=== PATIENT | male | born 1970 | race Caucasian/White ===

== ENCOUNTER 2024-09-17 10:50 | Emergency (ER) | payer OTHER, MEDICARE, SELFPAY ==
[2024-09-17 10:53] VITALS: BP 117/72
[2024-09-17] MEDS: NSS 1000 IV (11:39)
[2024-09-17] MEDS: TORADOL 15 MG IV (11:39)
[2024-09-17 11:41] VITALS: BMI 30.1
[2024-09-17 11:44] LABS: % Basophils 0.6 % (0-2); % Eosinophils 2.8 % (0-6); % Immature Granulocytes 0.1 % (0-0.5); % Lymphocytes 39.1 % (20.5-51.1); % Monocytes 9.7 % (1.7-9.3); % Neutrophils 47.7 % (42.2-75.2); Absolute Eosinophils 0.2 10^3/uL (0-0.7); Absolute Lymphocytes 2.6 10^3/uL (1.2-3.4); Absolute Monocytes 0.7 10^3/uL (0.1-0.6); Absolute Neutrophils 3.2 10^3/uL (1.4-6.5); Hemoglobin 16.3 g/dL (13.0-18.0); Mean Corp Hgb Conc. 36.2 g/dL (33.0-37.0); Mean Corpuscular Hgb 32.5 pg (27.0-31.0); Mean Corpuscular Volume 89.8 fL (80.0-94.0); Mean Platelet Volume 8.3 fL (7.4-10.4); Nucleated Red Blood Cells % 0 % (-); Platelet Count 210 10^3/uL (130-400); Red Blood Cell Count 5.01 10^6/uL (4.70-6.10); Red Cell Dist. Width 12.5 % (11.5-14.5); White Blood Cell Count 6.7 10^3/uL (4.8-10.8)
[2024-09-17 12:03] LABS: ALT (SGPT) 32 U/L (0-50); AST (SGOT) 30 U/L (17-59); Albumin 4.4 g/dl (3.5-5.0); Alkaline Phosphatase 89 U/L (38-126); Blood Urea Nitrogen 18 mg/dl (9-20); Calcium 10.1 mg/dl (8.4-10.2); Carbon Dioxide 25 mmol/L (22-30); Chloride 103 mmol/L (98-107); Estimated Creatinine Clearance > 125 ml/min; Glucose 102 mg/dl (70-99); Lipase 85 U/L (23-300); Potassium 4.3 mmol/L (3.5-5.1); Sodium 137 mmol/L (135-145); Total Bilirubin 1.2 mg/dl (0.2-1.3); Total Protein 7.1 g/dl (6.3-8.2); eGFR > 60.00
--- NOTE | 2024-09-17 13:29 | ED.GENMED ---
History of Present Illness
<Freddie Garnica DO - Last Filed: 09/17/24 13:33>
General
Chief Complaint: Abdominal Pain
Source: patient and family
Time Seen by Provider: 09/17/24 11:07
History of Present Illness
History of Present Illness:
54-year-old male who presents with lower abdominal pain. Mom states that he had similar pain about a month ago and it was chalked up to a viral infection. It did get better after 2 days. Today the pain started again and he was crying at home.
Mom states she was concerned because the pain returned. No vomiting. No urinary changes. No dysuria. No hematochezia. No constipation. No diarrhea. No nausea.
Past History
<Freddie Garnica DO - Last Filed: 09/17/24 13:33>
Past History
ED Past Medical History: Other (Developmentally delayed)
ED Past Surgical History: None
Phy Exam
<Freddie Garnica DO - Last Filed: 09/17/24 13:33>
Physical Exam
Physical Exam:
CONSTITUTIONAL Patient alert and oriented to person, place and time. Well-appearing. Vital signs reviewed. Developmentally delayed
HEAD atraumatic, normocephalic.
EYES eyelids normal to inspection, Extraocular muscles intact, Conjunctiva normal, Sclera normal.
NECK normal range of motion, Trachea midline, no jugular venous distention.
RESPIRATORY CHEST No respiratory distress noted, Chest expansion equal, Bilateral breath sounds clear.
CARDIOVASCULAR regular rate and rhythm, Heart sounds normal.
ABDOMEN patient points to the area below his umbilicus bilaterally where he is having pain. However there is no real focal tenderness there. Question minimal distention but normal bowel sounds.
BACK normal inspection, no obvious deformities
UPPER EXTREMITY range of motion normal, Motor strength normal, no cyanosis, no edema.
LOWER EXTREMITY range of motion normal, Motor strength normal, no cyanosis, no edema.
NEURO Speech normal, No focal motor deficits, [place] coma scale 15, Cranial Nerves intact to screening exam.
Course
<Freddie Garnica, DO - Last Filed: 09/17/24 13:33>
Orders/Labs/Results
Orders:
Orders
09/17/24 11:20
CT Abd/Pel (IV only)-[facility] only Urgent
Comment:
Reason For Exam: Lower abd pain
0.9% Sodium Chloride 1000 ml [Nss] 1,000 ml IV BOLUS
Ketorolac [Toradol] 15 mg IV NOW STA
09/17/24 11:35
Complete Blood Count/With Diff Urgent
Comprehensive Metabolic Panel Urgent
Lipase Urgent
09/17/24 14:17
Urinalysis Reflex To Culture Urgent
Date Specimen was Collected: 09/17/24
Time Specimen was Collected: 14:15
Urine Microscopic Reflex Cult Urgent
Abnormal Lab Results
09/17/24 09/17/24
11:35 14:17
MCH 32.5 H pg
(27.0-31.0)
Absolute Monos (auto) 0.7 H 10^3/uL
(0.1-0.6)
Monocytes % 9.7 H %
(1.7-9.3)
Glucose 102 H mg/dl
(70-99)
Urine Albumin (Reflex) 1+ A
(Neg - Trace)
09/17/24 11:35
09/17/24 11:35
Vital Signs
Initial and Last Documented VS:
Initial Vital Signs
Temp Pulse Resp Pulse Ox
97.4 F 66 18 97
09/17/24 10:51 09/17/24 10:51 09/17/24 10:51 09/17/24 10:51
Last Documented Vital Signs
Temp Pulse Resp BP Pulse Ox
97.4 F 63 16 135/83 97
09/17/24 10:51 09/17/24 14:19 09/17/24 14:19 09/17/24 14:19 09/17/24 14:19
<Jose Enrique Collazo MD - Last Filed: 09/17/24 14:57>
Orders/Labs/Results
Orders:
Orders
09/17/24 11:20
CT Abd/Pel (IV only)-[facility] only Urgent
Comment:
Reason For Exam: Lower abd pain
0.9% Sodium Chloride 1000 ml [Nss] 1,000 ml IV BOLUS
Ketorolac [Toradol] 15 mg IV NOW STA
09/17/24 11:35
Complete Blood Count/With Diff Urgent
Comprehensive Metabolic Panel Urgent
Lipase Urgent
09/17/24 14:17
Urinalysis Reflex To Culture Urgent
Date Specimen was Collected: 09/17/24
Time Specimen was Collected: 14:15
Urine Microscopic Reflex Cult Urgent
Abnormal Lab Results
09/17/24 09/17/24
11:35 14:17
MCH 32.5 H pg
(27.0-31.0)
Absolute Monos (auto) 0.7 H 10^3/uL
(0.1-0.6)
Monocytes % 9.7 H %
(1.7-9.3)
Glucose 102 H mg/dl
(70-99)
Urine Albumin (Reflex) 1+ A
(Neg - Trace)
09/17/24 11:35
09/17/24 11:35
Vital Signs
Initial and Last Documented VS:
Initial Vital Signs
Temp Pulse Resp Pulse Ox
97.4 F 66 18 97
09/17/24 10:51 09/17/24 10:51 09/17/24 10:51 09/17/24 10:51
Last Documented Vital Signs
Temp Pulse Resp BP Pulse Ox
97.4 F 63 16 135/83 97
09/17/24 10:51 09/17/24 14:19 09/17/24 14:19 09/17/24 14:19 09/17/24 14:19
<Freddie Garnica DO - Last Filed: 09/17/24 13:33>
MDM/Problems Addressed
Differential Diagnosis Includes:
Appendicitis, diverticulitis, colitis, bowel obstruction, constipation, urinary tract infection, kidney stone, AAA
MDM/Problems Addressed:
Abdominal pain
<Freddie Garnica DO - Last Filed: 09/17/24 13:33>
*Radiology
Radiology exam reviewed: preliminary read by ED provider (No free air noted)
*Pulse Oximetry
Patient hypoxic: no
*Critical Care Note
Total Time (30-74mins, 75-104mins- exclusive of procedures): Not Applicable
Data Reviewed
Source: patient and family
Prescriptions/Medications Considered But Not Given:
Considered narcotic pain medicine the patient appears well and feels better after to
<Freddie Garnica DO - Last Filed: 09/17/24 13:33>
Patient Management
Escalation/DeEscalation of care consider admission/obs:
CT pending. Case discussed with Dr. Collazo. Signed out pending CT. Dispo per CT. Labs grossly unremarkable. Vital signs okay
<Jose Enrique Collazo MD - Last Filed: 09/17/24 14:57>
Update Note
Update Note:
CT abdomen pelvis report reviewed and discussed with patient and parents. Patient advised to follow-up with PCP for reevaluation. Otherwise, patient is afebrile, hemodynamically stable, and nontoxic-appearing at time of discharge.
ED Attending Note
<DO Ann Betnacur Last Filed: 09/17/24 13:33>
-
Portions of this chart may have been created with voice recognition software.� Occasional wrong word or��sound alike� substitutions may have occurred due to the inherent limitations of voice recognition software.
Discharge Plan
Departure
Patient Disposition: Home (Routine Discharge)
Date of Disposition: 09/17/24
Time of Disposition: 14:56
Patient with high blood pressure during this ER visit?: Yes
Condition: Good
Discharge Problem:
Abdominal pain
Instructions: Abdominal Pain
Referrals:
UNKNOWN - PT DOES,NOT KNOW [Family Provider] -
Activity Restrictions/Additional Instructions:
As discussed, please follow-up with your primary care physician for further evaluation and treatment. Please consider return to ED with worsening symptoms, i.e. fever/worsening pain/vomiting.
Interventions
Interventions:
*Risk Screen - Suicide Last Done: 09/17/24 14:19
*General Assessment Last Done: 09/17/24 14:19
*Neglect/Abuse Screening Last Done: 09/17/24 14:19
*ED- Fall Risk Assessment Last Done: 09/17/24 14:19
SH-Qutjjy-Ghiwamclac Assessment Last Done: 09/17/24 11:48
Discharge Date and Time
Print Language: ALBANIAN
[2024-09-17 14:19] VITALS: BP 135/83
[2024-09-17 14:32] LABS: Urine Albumin 1+ (Neg - Trace); Urine Bilirubin Negative (Negative); Urine Character Clear (Clear); Urine Color Yellow; Urine Glucose Negative (Negative); Urine Ketone Negative (Negative); Urine Leukocyte Negative (Negative); Urine Nitrite Negative (Negative); Urine Occult Blood Negative (Negative); Urine Urobilinogen Negative (Neg - 1+); Urine pH 6.5 (5.0-9.0)
[2024-09-17 14:59] LABS: Urine Mucus Many
[2024-09-17 15:00] LABS: Urine Amorphous Seen; Urine Urothelial Cell 0-2 /LPF (FEW)
[2024-09-17 15:01] LABS: Urine Red Blood Cell 0-2 /HPF (0-2); Urine White Cell 0-2 /HPF (0-5)
== END 2024-09-17 15:18 | disposition home or self-care (01) ==
LOC: EMR 10:50
PROVIDERS: EMERGENCY PHYSICIAN Emergency Medicine
DX: R10.30 Lower abdominal pain, unspecified (principal); R03.0 Elevated blood-pressure reading, without diagnosis of hypertension
CPT/HCPCS: 99285; 96374; 96361; 74177; 80053; 81003; 81015; 83690; 85025; Q9967

== ENCOUNTER 2024-10-22 09:43 | Emergency (ER) | payer MEDICARE, SELFPAY ==
[2024-10-22 09:48] VITALS: BP 167/111
--- NOTE | 2024-10-22 10:33 | ED.GENMED ---
History of Present Illness
General
Chief Complaint: Musculo-Skeletal Complaint
Time Seen by Provider: 10/22/24 10:25
History of Present Illness
History of Present Illness:
Patient is a 54-year-old male with history of developmental delay presenting to the emergency department with back pain and leg pain. Patient states that he went on a long walk with his brother yesterday and now he has pain to his left lower
back/hip. The pain shoots down his leg. No numbness tingling urinary incontinence saddle anesthesia fevers or chills. No falls. No traumatic injuries. His muscles do not feel sore. He has had sciatica in the past before and this does feel
similar.
Past History
Past History
ED Past Medical History: Other (Developmentally delayed)
ED Past Surgical History: None
Phy Exam
Physical Exam
Physical Exam:
GENERAL: in no acute distress
HEENT: normocephalic, extraocular movements intact, moist oral mucosa
NECK: normal inspection
RESPIRATORY: no respiratory distress, clear to auscultation bilaterally
CARDIOVASCULAR: regular rate and rhythm
ABDOMEN/: soft, non-distended, non-tender to palpation, no rebound or guarding
EXTREMITIES: non-tender, no edema/swelling, reproducible tenderness to the left lower back/upper hip with radiation of pain down the leg
NEUROLOGIC: awake and alert, moves all extremities, equal strength in upper and lower extremities, no sensory deficits
SKIN: warm
Course
Orders/Labs/Results
Orders:
Orders
10/22/24 10:33
Ketorolac [Toradol] 15 mg IM NOW STA
Prednisone [Deltasone] 50 mg PO NOW STA
Vital Signs
Initial and Last Documented VS:
Initial Vital Signs
Temp Pulse Resp BP Pulse Ox
98.2 F 86 18 167/111 95
10/22/24 09:48 10/22/24 09:48 10/22/24 09:48 10/22/24 09:48 10/22/24 09:48
Last Documented Vital Signs
Temp Pulse Resp BP Pulse Ox
98.2 F 86 18 167/111 95
10/22/24 09:48 10/22/24 09:48 10/22/24 09:48 10/22/24 09:48 10/22/24 09:48
MDM/Problems Addressed
Differential Diagnosis Includes:
Patient is a 54-year-old man with history of developmental delay presenting to the emergency department with left lower back/leg pain after going on a long walk with his brother. Vitals are notable for being hypertensive and exam does show
reproducible tenderness. Could be MSK pain versus sciatica given the radiation. No red flags to suggest cauda equina cord compression osteomyelitis discitis or vertebral compression fracture. Will pain control with Toradol. Given the neuropathic
component we will give steroids as this does feel similar to prior sciatica pain. We did discuss the utility of an x-ray and given that there is no traumatic injuries and likely musculoskeletal normal for x-ray. Patient's mother at bedside is in
agreement with this. Strict return precautions given. Will discharge at this time.
*Critical Care Note
Total Time (30-74mins, 75-104mins- exclusive of procedures): Not Applicable
ED Attending Note
-
Portions of this chart may have been created with voice recognition software.� Occasional wrong word or��sound alike� substitutions may have occurred due to the inherent limitations of voice recognition software.
Discharge Plan
Departure
Patient Disposition: Home (Routine Discharge)
Date of Disposition: 10/22/24
Time of Disposition: 11:29
Patient with high blood pressure during this ER visit?: Yes
Discharge Problem:
Sciatica
Instructions: Exercises for sciatic pain, Sciatica - ED discharge instructions
Prescriptions:
New
prednisone 20 mg tablet
40 mg PO DAILY 5 Days Qty: 10 0RF
Referrals:
FELICIA BLACKMON [Other]
Activity Restrictions/Additional Instructions:
The exact cause of your back pain is unclear but it is likely musculoskeletal/mechanical low back pain that usually improves with conservative treatment after a few weeks.
You can take ibuprofen 400 mg (2 dfvb-icd-eoszpca tablets) every 4 hours or 600 mg (3 bnms-hdp-wpvmkzk tablets) every 6 hours as needed for pain. Take the lowest effective dose -- the 600 mg dose has an anti-inflammatory effect, but evidence
suggests that this dose may not get you better pain control over a 400 mg dose.
You can take Tylenol 1000 mg (3 regular strength tablets or 2 extra strength tablets) every 6 hours as needed for pain up to 3 doses per day.
Wean yourself off of the ibuprofen as soon as your pain is tolerable. This medication, if used long-term, can have negative effects on the kidneys, heart and stomach. Tylenol is the safest medication but does not have the anti-inflammatory component.
Apply a heating pad 15-20 minutes at a time every few hours. Make sure not to sleep with the heating pad on as it can burn your skin. You may also try ice every few hours -- make sure not to apply an icepack directly to the skin. You can alternate
the two as well.
You can apply a lidocaine patch to the painful area every 8 hours as well.
I did prescribe you steroids as well. Please take them for 5 days.
Return to the emergency department if you develop inability to urinate, are unable to hold your stool, have numbness when your wipe yourself after using the bathroom, develop new weakness in the legs, develop a fever, if you have worsening pain or
if you have any increasing concerns.
If your pain is not improving over the next 1-2 weeks, please follow-up with your primary care doctor.
Interventions
Interventions:
*Risk Screen - Suicide Last Done: 10/22/24 09:48
*General Assessment Last Done: 10/22/24 09:48
*ED COVID-19 Vaccine History Last Done: 10/22/24 10:50
Discharge Date and Time
Print Language: FRISIAN
[2024-10-22] MEDS: DELTASONE 50 MG PO (10:41)
[2024-10-22] MEDS: TORADOL 15 MG IM (10:42)
== END 2024-10-22 11:39 | disposition home or self-care (01) ==
LOC: EMR 09:43
PROVIDERS: EMERGENCY PHYSICIAN Student in an Organized Health Care Education/Training Program
DX: M54.42 Lumbago with sciatica, left side (principal); R03.0 Elevated blood-pressure reading, without diagnosis of hypertension
CPT/HCPCS: 99284; 96372

== ENCOUNTER 2025-01-06 11:07 | Emergency (ER) | payer MEDICARE, SELFPAY ==
[2025-01-06 11:10] VITALS: BP 149/90
[2025-01-06 11:33] LABS: Hematocrit 43.3 % (39.0-52.0); Hemoglobin 15.4 g/dL (13.0-18.0); Mean Corp Hgb Conc. 35.6 g/dL (33.0-37.0); Mean Corpuscular Volume 91.5 fL (80.0-94.0); Nucleated Red Blood Cells % 0 % (-); Platelet Count 214 10^3/uL (130-400); Red Cell Dist. Width 12.3 % (11.5-14.5)
[2025-01-06 11:41] LABS: ALT (SGPT) 37 U/L (0-50); AST (SGOT) 32 U/L (17-59); Albumin 4.7 g/dl (3.5-5.0); Alkaline Phosphatase 71 U/L (38-126); Blood Urea Nitrogen 17 mg/dl (9-20); Calcium 10.6 mg/dl (8.4-10.2); Carbon Dioxide 28 mmol/L (22-30); Chloride 106 mmol/L (98-107); Glucose 120 mg/dl (70-99); Lipase 77 U/L (23-300); Potassium 4.4 mmol/L (3.5-5.1); Sodium 139 mmol/L (135-145); Total Protein 7.6 g/dl (6.3-8.2); eGFR > 60.00
--- NOTE | 2025-01-06 13:23 | ED.GENMED ---
History of Present Illness
General
Chief Complaint: Abdominal Symptoms
Source: patient
Exam Limitations: none
Time Seen by Provider: 01/06/25 12:53
Nursing documentation reviewed up to this point in time: agreed with
History of Present Illness
History of Present Illness:
PT IS A 54 YO M
h/o developmental delay
from [facility]
here with periumbilical pain and n/v x 1
ate tuna last night and then went to sleep
woke up at 11 pm and vomited once
then slept til this morning and mom said he was crying about pain in his umbilical region for about 1-2 hours and then she finally brought him
unclear when last BM was
no pain with urination
no fever/chills
pt is poor historian
doesn't get constipated
Past History
Past History
ED Past Medical History: Other (Developmentally delayed)
ED Past Surgical History: None
Review of Systems
Review of Systems
Allergies reviewed?: Yes
All Other Systems: Not applicable
Phy Exam
Physical Exam
Physical Exam:
GENERAL: Alert , in no apparent distress developmental delay
EYE: pupils equal and reactive
NECK: Supple
ENT: o/p clr, mmm.
CARDIAC: Regular rate and rhythm .
LUNGS: Clear breath sounds bilaterally, no acute respiratory distress, no wheezes/rales/rhonchi
ABDOMEN: Soft, mild periumbilical abdominal tenderness, no masses, no guarding or rebound, no r/g, no cvat, normal bowel sounds
NEUROLOGICAL: Alert and oriented, no focal neuro deficits
SKIN: Warm and dry, skin intact.
MUSCULOSKELETAL: No edema, well perfused. neg niki's sign
PSYCH: Normal and appropriate interaction.
Course
Orders/Labs/Results
Orders:
Orders
01/06/25 11:23
Complete Blood Count/With Diff Urgent
Comprehensive Metabolic Panel Urgent
Lipase Urgent
01/06/25 13:07
CT Abd/Pel (IV only)-[facility] only Urgent
Comment:
Reason For Exam: periumbilical pain, vomiting
Urinalysis Reflex To Culture Urgent
Date Specimen was Collected: 01/06/25
Time Specimen was Collected: 13:09
Abnormal Lab Results
01/06/25
11:23
MCH 32.6 H pg
(27.0-31.0)
Absolute Monos (auto) 0.8 H 10^3/uL
(0.1-0.6)
Monocytes % 10.8 H %
(1.7-9.3)
Glucose 120 H mg/dl
(70-99)
Calcium 10.6 H mg/dl
(8.4-10.2)
01/06/25 11:23
01/06/25 11:23
Vital Signs
Initial and Last Documented VS:
Initial Vital Signs
Temp Pulse Resp BP Pulse Ox
36.8 C 66 18 149/90 97
01/06/25 11:10 01/06/25 11:10 01/06/25 11:10 01/06/25 11:10 01/06/25 11:10
Last Documented Vital Signs
Temp Pulse Resp BP Pulse Ox
36.8 C 68 16 128/80 100
01/06/25 14:30 01/06/25 14:30 01/06/25 14:30 01/06/25 14:30 01/06/25 14:30
MDM/Problems Addressed
Differential Diagnosis Includes:
appendicitis, diverticulitis, uti, stool impaction
MDM/Problems Addressed:
54 y/o M
dev delay
from [facility] bu thas been visiting wiht mom for 3 days
here with periumbilical pain and vomiting x 1
ate a piece of fish last night (tuna)
no rash/redness
vomiting did not continue
has no allergy to tuna
well appearing
mild tenderness periumbilcla region
poor historian due to his dev dlay
wbc normal but opted to scan
scan was neg
requested ua but pt delicned
mother wants to take home
he is already eating a tuna sub
*Pulse Oximetry
SaO2: 97
Oxygen Mode of Delivery: Room air
Patient hypoxic: no (97)
*Critical Care Note
Total Time (30-74mins, 75-104mins- exclusive of procedures): Not Applicable
ED Attending Note
-
Portions of this chart may have been created with voice recognition software.� Occasional wrong word or��sound alike� substitutions may have occurred due to the inherent limitations of voice recognition software.
Discharge Plan
Departure
Patient Disposition: Home (Routine Discharge)
Date of Disposition: 01/06/25
Time of Disposition: 14:37
Patient with high blood pressure during this ER visit?: Yes
Condition: Fair
Covid-19: Not Applicable
Discharge Problem:
Abdominal pain
Instructions: Nausea and Vomiting, Adult (DC), Abdominal Pain
Prescriptions:
No Action
prednisone 20 mg tablet
40 mg PO DAILY 5 Days Qty: 10 0RF
Referrals:
UNKNOWN - PT DOES,NOT KNOW [Family Provider]
Activity Restrictions/Additional Instructions:
THE BLOOD WORK AND CAT SCAN WERE REASSURING
BLAND DIET TODAY
CONSIDER GETTING HIS URINE TESTED IF HE IS STILL COMPLAINING OF DEMARCUS
RETURN FO RANY CONCERNS LIKE REPEATED VOMITING OR FEVER, ETC
Interventions
Interventions:
*Risk Screen - Suicide Last Done: 01/06/25 11:10
*General Assessment Last Done: 01/06/25 11:10
*Neglect/Abuse Screening Last Done: 01/06/25 13:30
*ED- Fall Risk Assessment Last Done: 01/06/25 13:30
*ED COVID-19 Vaccine History Last Done: 01/06/25 13:30
*Nursing Disposition Last Done: 01/06/25 15:12
QD-Aypukm-Gcsdcantao Assessment Last Done: 01/06/25 13:30
Discharge Date and Time
Discharge Date/Time: 01/06/25 15:13
Print Language: MALAY
[2025-01-06 14:30] VITALS: BP 128/80
== END 2025-01-06 15:13 | disposition home or self-care (01) ==
LOC: EMR 11:07
PROVIDERS: EMERGENCY PHYSICIAN Emergency Medicine
DX: R10.33 Periumbilical pain (principal); R11.10 Vomiting, unspecified; R03.0 Elevated blood-pressure reading, without diagnosis of hypertension; I10 Essential (primary) hypertension
CPT/HCPCS: 99284; 74177; 80053; 83690; 85025; Q9967